=== PATIENT | male | born 1935 | race Caucasian/White ===

== ENCOUNTER 2024-03-15 22:39 | Emergency (ER) | payer MEDICARE, OTHER ==
[~2024-03-15] VITALS: Ht 177.8 cm; Wt 75.0 kg
[~2024-03-15 22:39] MED LIST: ASPIRIN 32325 MG/TAB PO; CARDIZEM CD 12120 MG PO; COUMADIN 22.5 MG/TAB PO; FLOMAX 0.40.4 MG/CAP; HYTRIN 5MG C5 MG/CAP PO; INDERAL 10MG10 MG PO; TAMBOCOR50 MG PO; TENORMIN 5050 MG/TAB PO; TIKOSYN0.25 MG; TYLENOL 500MG500 MG PO
[2024-03-15 22:53] VITALS: BP 142/73; TEMP 98
[2024-03-15] MEDS ORDERED: Rabies Immune Globulin PF 300 UNITS/2 ML VIAL IM ONE (23:45)
[2024-03-15] MEDS ORDERED: Tetanus,Diphther Toxoid Adult 0.5 ML SYRINGE IM ONE (23:45)
[2024-03-16 01:00] VITALS: PULSE 78
== END 2024-03-16 01:00 | disposition home or self-care (01) ==
LOC: COL.ER 22:39
DX: S61.052A Open bite of left thumb without damage to nail, initial encounter (principal); Z20.3 Contact with and (suspected) exposure to rabies; W64.XXXA Exposure to other animate mechanical forces, initial encounter